=== PATIENT | female | born 1995 | race Caucasian/White ===

== ENCOUNTER 2023-05-25 21:11 | Emergency (ER) | payer BC, SELFPAY ==
[2023-05-25 21:14] VITALS: BP 116/72; PULSE 93; RESP 14; TEMP 37; O2SAT 100
[2023-05-25 22:49] LABS: Basophils Absolute Auto 0.1 K/mm3 (0.0-0.1); Basophils Percent Auto 1.3 % (0.2-1.2); Eosinophils Percent Auto 0.4 % (0-4.4); Hematocrit 38.4 % (37.0-47.0); Hemoglobin 12.4 g/dL (12.0-15.0); Immature Granulocyte Absolute 0.01 K/mm3 (0.00-0.031); Immature Granulocyte Percent A 0.1 % (0-0.5); Lymphocytes Absolute Auto 2.17 K/mm3 (0.9-3.2); Lymphocytes Percent Auto 31.2 % (18.3-44.2); Mean Corpuscular HGB Conc 32.3 g/dl (32-36); Mean Corpuscular Hemoglobin 29.2 pg (26-34); Mean Corpuscular Volume 90.6 fl (80-100); Mean Platelet Volume 12.1 fl (7.4-10.4); Monocytes Absolute Auto 0.3 K/mm3 (0.1-0.6); Monocytes Percent Auto 4.7 % (2.6-8.5); Neutrophils Absolute Auto 4.3 K/mm3 (1.3-6.7); Neutrophils Percent Auto 62.3 % (45.5-73.1); Platelet Count Result 199 k/mm3 (150-375); Red Blood Count 4.24 M/mm3 (4.2-5.4); Red Cell Distribution Width 13.2 % (11.5-14.5)
[2023-05-25 23:01] LABS: Acetaminophen < 10 ug/mL (10-30); Ethanol < 10 mg/dL (<10); Salicylate < 1.0 mg/dL (2-20)
[2023-05-25 23:16] LABS: Alanine Aminotransferase 13 U/L (6-35); Albumin Level 4.2 g/dL (3.5-5.1); Alkaline Phosphatase 51 U/L (38-126); Anion Gap 9 mmol/L (8-16); Aspartate Amino Transferase 20 U/L (14-36); Bilirubin,Total 0.6 mg/dL (0.2-1.3); Blood Urea Nitrogen 7 mg/dL (7-17); Calcium 9.3 mg/dL (8.4-10.2); Carbon Dioxide 27 mmol/L (22-30); Chloride 104 mmol/L (98-107); Estimated CRCL calculation 76 ml/min; Estimated Glomerular Filt Rate > 60; Glucose 105 mg/dL (65-110); Potassium 2.7 mmol/L (3.4-5.0); Sodium 140 mmol/L (137-145)
[2023-05-25 23:29] LABS: Influenza A QL RT-PCR Negative (Negative); Influenza B QL RT-PCR Negative (Negative); RSV RNA, RT-PCR Negative (Negative); SARS-CoV-2 RNA PCR Positive (Negative)
--- NOTE | 2023-05-25 23:32 | PC.NURSE ---
Per EDP Dr. Martinez patient is medically cleared
[2023-05-25 23:42] LABS: Appearance Urine Clear (Clear); Bacteria Urine Rare /hpf; Bilirubin Urine Negative (Negative); Blood Urine Negative (Negative); Color Urine Yellow (Yellow); Glucose Urine UA Negative (Negative); Ketones Urine Trace mg/dL (Negative); Leukocyte Esterase Ur 1+ LEU/UL (Negative); Mucus Urine Present /lpf; Need Manual Microscopic Reviewed; Nitrate Urine Negative (Negative); Non Pathogenic Casts 0-2; Protein Urine Trace mg/dL (Negative); RBC Urine 0-2 /hpf (0-2); Specific Grav Ur 1.023 (1.001-1.035); Squamous Epithelial Cell Urine Occasional /hpf (Few); pH Urine 5.5 (5.0-9.0)
[2023-05-25 23:43] LABS: Add Urine Microscopic? YES
[2023-05-26] MEDS: POTASSIUM CHLORIDE 20 MEQ PACKET (FOR LIQUID) 40 MEQ PO (00:02)
--- NOTE | 2023-05-26 00:38 | ED.GENADULT ---
HPI - General Adult General Chief complaint: Psychiatric Symptoms Stated complaint: si Time Seen by Provider: 05/25/23 22:43 History of Present Illness HPI narrative: patient is a 27-year-old female who presents emergency department with chief complaint of suicidal ideation. The patient reports she has history of anxiety but is currently not seeing a therapist or on any medications the patient reports this evening she got in an argument with her mother and said that she wished that she was not living. Patient reports that she is not actively suicidal denies a establish plan to harm herself Related Data Allergies Allergy/AdvReac Type Severity Reaction Status Date / Time latex Allergy Rash Verified 05/25/23 21:17 soap Allergy Rash Verified 05/25/23 21:17 Review of Systems Review of Systems: A 10 system review of systems was completed on the patient and is negative except for what is stated in the HPI. Nursing and ancillary documentation was reviewed. [facility] Social History Social History Substance use type: does not use Exam Narrative: GENERAL: Well-appearing, well-nourished, and in no acute distress. HEAD: Normocephalic, atraumatic. EYES: PERRLA and EOMI. ENT: Nares clear, no rhinorrhea or epistaxis. Mucous membranes moist. NECK: Supple. CHEST: Clear to auscultation. No respiratory distress. HEART: Regular rate and rhythm. No murmur heard. Normal peripheral pulses. ABDOMEN: Soft, nontender, nondistended, normal active bowel sounds. EXTREMITIES: Normal range of motion. No edema. SKIN: Warm, dry, no rash. NEURO: No focal deficits. Alert and oriented x3. PSYCH: Normal mood and affect. Course Vital Signs Vital signs: Vital Signs Temperature 37.0 C 05/25/23 21:14 Pulse Rate 93 05/25/23 21:14 Respiratory Rate 14 05/25/23 21:14 Blood Pressure 116/72 05/25/23 21:14 Pulse Oximetry 100 05/25/23 21:14 Oxygen Delivery Room Air 05/25/23 21:14 Temperature 37.0 C 05/25/23 21:14 Pulse Rate 93 05/25/23 21:14 Respiratory Rate 14 05/25/23 21:14 Blood Pressure 116/72 05/25/23 21:14 Pulse Oximetry 100 05/25/23 21:14 Oxygen Delivery Room Air 05/25/23 21:14 Medical Decision Making MDM Narrative Medical decision making narrative: differential diagnosis includes depression, anxiety, toxicological cause, UTI, viral syndrome laboratory studies were obtained on the patient which did test positive for COVID-19 urinalysis also showed 11-20 white blood cells in the urine and patient had a potassium of 2.7. Patient was given oral potassium in the emergency department the patient will be offered packs loaded and also will be offered antibiotics for her UTI. Patient is medically cleared for psychiatric evaluation referral transfer and admission Vital Signs Vital Signs: Vital Signs Temperature 37.0 C 05/25/23 21:14 Pulse Rate 93 05/25/23 21:14 Respiratory Rate 14 05/25/23 21:14 Blood Pressure 116/72 05/25/23 21:14 Pulse Oximetry 100 05/25/23 21:14 Oxygen Delivery Room Air 05/25/23 21:14 Temperature 37.0 C 05/25/23 21:14 Pulse Rate 93 05/25/23 21:14 Respiratory Rate 14 05/25/23 21:14 Blood Pressure 116/72 05/25/23 21:14 Pulse Oximetry 100 05/25/23 21:14 Oxygen Delivery Room Air 05/25/23 21:14 Lab Data 05/25/23 22:05 05/25/23 22:05 Labs: Lab Results 05/25/23 05/25/23 Range/Units 22:05 22:15 WBC 7.0 (4.5-10.0) K/mm3 RBC 4.24 (4.2-5.4) M/mm3 Hgb 12.4 (12.0-15.0) g/dL Hct 38.4 (37.0-47.0) % MCV 90.6 (80-100) fl MCH 29.2 (26-34) pg MCHC 32.3 (32-36) g/dl RDW 13.2 (11.5-14.5) % Plt Count 199 (150-375) k/mm3 MPV 12.1 H (7.4-10.4) fl Immature Gran % (Auto) 0.1 (0-0.5) % Neut % (Auto) 62.3 (45.5-73.1) % Lymph % (Auto) 31.2 (18.3-44.2) % [place] % (Auto) 4.7 (2.6-8.5) % E
[2023-05-26 00:44] LABS: Amphetamine Screen Urine Negative (Negative); Barbiturate Screen Urine Negative (Negative); Benzodiazepines Screen Urine Negative (Negative); Cannabinoid Screen Urine Negative (Negative); Cocaine Screen Urine Negative (Negative); Methadone Screen Urine Negative (Negative); Opiate Screen Urine Negative (Negative); Phencyclidine Screen Urine Negative (Negative)
== END 2023-05-26 02:05 | disposition home or self-care (01) ==
PROVIDERS: Emergency Provider Emergency Medicine
DX: U07.1 COVID-19 (principal); N39.0 Urinary tract infection, site not specified; F41.9 Anxiety disorder, unspecified; E87.6 Hypokalemia
CPT/HCPCS: 36415; 80053; 80307; 81001; 81025; 84443; 85025; 87086; 87637; 99284; A9270